=== PATIENT | female | born 1970 | race Caucasian/White ===

== ENCOUNTER 2021-07-26 13:15 | Emergency (ER) | payer BC, OTHER ==
[~2021-07-26] VITALS: Ht 160 cm; Wt 70.5 kg
--- NOTE | 2021-07-26 15:38 | REP ---
INDICATION: CHEST PAIN COMPARISON: None. TECHNIQUE: Portable AP view of the chest FINDINGS: The mediastinum and cardiac silhouette are within normal limits for portable technique. The lung lay are clear without acute consolidation, effusion, or pneumothorax. Skeletal structures are intact. IMPRESSION: No acute cardiopulmonary process appreciated. <Electronically signed by Slava Marshall > 07/26/21 [id number]
[2021-07-26 16:17] LABS: BASO % 0.6 % (0.0-1.0); EOS # 0.1 10^3/uL (0.0-0.5); EOS % 1.4 % (0.0-3.0); HEMATOCRIT 40.8 % (36.0-47.0); HEMOGLOBIN 14.1 g/dl (12.0-15.5); LYMPH # 3.1 10^3/uL (1.5-5.0); LYMPH % 42.9 % (24.0-44.0); MEAN CORPUSCULAR HEMOGLOBIN 32.3 pg (27.0-33.0); MEAN CORPUSCULAR HGB CONC 34.6 g/dl (32.0-36.5); MEAN CORPUSCULAR VOLUME 93.6 fl (80.0-96.0); MONO # 0.5 10^3/uL (0.0-0.8); MONO % 6.2 % (2.0-8.0); NEUTROPHILS # 3.5 10^3/uL (1.5-8.5); NEUTROPHILS % 48.8 % (36.0-66.0); PLATELET COUNT, AUTOMATED 289 10^3/uL (150-450); RED BLOOD COUNT 4.36 10^6/uL (4.00-5.40); WHITE BLOOD COUNT 7.2 10^3/uL (4.0-10.0)
[2021-07-26] MEDS ORDERED: ISOVUE-370 76% 100ML VIAL As Ordered ONE (16:39)
[2021-07-26 16:41] LABS: ALBUMIN 4.1 GM/DL (3.2-5.2); ALT/SGPT 26 U/L (12-78); BILIRUBIN,DIRECT < 0.1 MG/DL (0.0-0.2); BILIRUBIN,TOTAL 0.3 MG/DL (0.2-1.0); CK-MB VALUE MASS < 1.0 NG/ML (<3.6); CPK CREATINE PHOSPHOKINASE 62 U/L (26-192); LIPASE 119 U/L (73-393); MB/CK RELATIVE INDEX 1.61 (< OR =4); NT-PRO BNP 142 PG/ML (<125); TOTAL PROTEIN 7.5 GM/DL (6.4-8.2); TROPONIN I < 0.02 NG/ML (< 0.10)
--- NOTE | 2021-07-26 17:01 | REP ---
INDICATION: CP COMPARISON: None. TECHNIQUE: CT angiography of the chest after the intravenous administration of 75 cc Isovue 370 attention pulmonary arteries. FINDINGS: There is excellent visualization of the pulmonary arterial vasculature. There are no focal filling defects present that would be considered consistent with acute pulmonary emboli. There are no pleural or pericardial effusions. There is no mediastinal or hilar adenopathy. There is a 3.3 cm sized low-density mass which is macrobosselated arising from the left adrenal gland. Similar but smaller nodules are seen in the right adrenal gland. Even after intravenous contrast was administered these areas have consistent low density Hounsfield unit readings well below 16. The imaged upper abdomen is otherwise unremarkable. The imaged osseous structures are within normal limits. Evaluation of the lung lay shows mild patchy ground-glass opacities likely subsegmental atelectatic changes. IMPRESSION: 1. There is no evidence of a pulmonary embolus. 2. Likely benign bilateral low-density adrenal gland nodules, however, pre and post gadolinium enhanced MRI to include in and out of phase imaging is recommended for complete evaluation. 3. Other findings as described above. <Electronically signed by Sami Wilkinson > 07/26/21 [id number]
[2021-07-26 17:45] VITALS: BP 141/67
[2021-07-26 18:04] LABS: RSV AMPLIFICATION NEGATIVE (NEGATIVE)
--- NOTE | 2021-07-26 21:25 | ECGEPIP ---
[facility] - ED Test Date: 2021-07-26 Pat Name: MARY LOTT Department: Room: - Gender: Female [employer]: gabby lopez : 1970 Requested By: Yolanda Calderon Order Number: [id number] Reading MD: Yolanda Calderon Measurements Intervals [place] Rate: 68 P: 45 OR: 174 QRS: -10 QRSD: 80 T: 14 QT: 396 QTc: 421 Interpretive Statements Normal sinus rhythm No prior Electronically Signed on 07-26-2021 21:25:34 EDT by Yolanda Calderon
== END 2021-07-26 17:58 | disposition home or self-care (01) ==
LOC: M ED 13:15
DX: R07.89 Other chest pain (principal); M54.9 Dorsalgia, unspecified; Z98.84 Bariatric surgery status; Z82.49 Family history of ischemic heart disease and other diseases of the circulatory system; Z88.0 Allergy status to penicillin
CPT/HCPCS: 71045; 71275; 80047; 80076; 82550; 82553; 83690; 83880; 84443; 84484; 85025; 87631; 93005; 93041; 94760; 99285; Q9967

== ENCOUNTER 2022-08-09 00:43 | Emergency (ER) | payer BC ==
[~2022-08-09] VITALS: Ht 154.9 cm; Wt 75.0 kg
[2022-08-09 02:37] LABS: BASO % 0.2 % (0.0-1.0); EOS # 0.1 10^3/uL (0.0-0.5); EOS % 0.6 % (0.0-3.0); HEMATOCRIT 38.5 % (36.0-47.0); HEMOGLOBIN 13.2 g/dl (12.0-15.5); LYMPH % 23.5 % (24.0-44.0); MEAN CORPUSCULAR HEMOGLOBIN 31.7 pg (27.0-33.0); MEAN CORPUSCULAR HGB CONC 34.3 g/dl (32.0-36.5); MEAN CORPUSCULAR VOLUME 92.3 fl (80.0-96.0); MONO # 0.6 10^3/uL (0.0-0.8); MONO % 6.5 % (2.0-8.0); NEUTROPHILS % 68.9 % (36.0-66.0); PLATELET COUNT, AUTOMATED 312 10^3/uL (150-450); RED BLOOD COUNT 4.17 10^6/uL (4.00-5.40); WHITE BLOOD COUNT 8.6 10^3/uL (4.0-10.0)
[2022-08-09 03:16] LABS: BLOOD UREA NITROGEN 13 MG/DL (7-18); CALCIUM LEVEL 9.1 MG/DL (8.5-10.1); CARBON DIOXIDE LEVEL 29 MEQ/L (21-32); CHLORIDE LEVEL 101 MEQ/L (98-107); CREATININE FOR GFR 0.77 MG/DL (0.55-1.30); GLOMERULAR FILTRATION RATE > 60.0 (>51); GLUCOSE, FASTING 122 MG/DL (70-100); POTASSIUM SERUM 3.5 MEQ/L (3.5-5.1); SODIUM LEVEL 135 MEQ/L (136-145)
[2022-08-09 04:51] LABS: AMPHETAMINES LEVEL URINE NEGATIVE (NEGATIVE); BARBITURATES URINE NEGATIVE (NEGATIVE); BENZODIAZEPINES URINE NEGATIVE (NEGATIVE); CANNABINOIDS URINE POSITIVE (NEGATIVE); COCAINE METABOLITE URINE NEGATIVE (NEGATIVE); METHADONE URINE NEGATIVE (NEGATIVE); OPIATES URINE NEGATIVE (NEGATIVE); PHENCYCLIDINE URINE NEGATIVE (NEGATIVE)
[2022-08-09 05:00] VITALS: BP 161/87
[2022-08-09] MEDS ORDERED: ONDA4TAB6 PO (05:12)
[2022-08-09] MEDS ORDERED: ONDANSETRON 4MG ORAL DISINTEGRATING TAB PO ONE (05:15)
== END 2022-08-09 05:33 | disposition home or self-care (01) ==
LOC: M ED 00:43 → EDBD 00:43 → M ED 05:33
DX: R53.1 Weakness (principal); F12.10 Cannabis abuse, uncomplicated; R06.02 Shortness of breath; R42 Dizziness and giddiness; R11.0 Nausea; Z98.84 Bariatric surgery status; Z90.710 Acquired absence of both cervix and uterus; Z98.51 Tubal ligation status; Z88.0 Allergy status to penicillin; Z88.1 Allergy status to other antibiotic agents